=== PATIENT | female | born 1990 | race Caucasian/White ===

== ENCOUNTER 2016-08-19 15:50 | Emergency (ER) | payer OTHER ==
[2016-08-19] MEDS ORDERED: Ketorolac 30 MG/ML SDV IVPUSH ONE (16:10)
[2016-08-19] MEDS ORDERED: Sodium Chloride 0.9% 1,000 ML IV ONE (16:10)
[2016-08-19] MEDS ORDERED: Ondansetron 4 MG/2 ML SDV IVPUSH ONE (16:13)
--- NOTE | 2016-08-19 16:14 | EDM.PDOC ---
ED HPI Trauma - General Chief Complaint: Upper Extremity Injury/Pain Stated Complaint: RIGHT HAND Time Seen by Provider: 08/19/16 16:04 Source: Reports: Patient History Limitations: Reports: No limitations - History of Present Illness INITIAL COMMENTS - FREE TEXT/NARRATIVE: History of present illness: [26 rolled female presenting with acute trauma to right hand. Patient describes a smashing-type injury between 2 metal objects. The fourth digit of her right hand has some avulsion with nail plate disruption.] Review of systems: As per history of present illness and below otherwise all systems reviewed and negative. Past medical history: As per history of present illness and as reviewed below otherwise noncontributory. Surgical history: As per history of present illness and as reviewed below otherwise noncontributory. Social history: No reported history of drug or alcohol abuse. Family history: As per history of present illness and as reviewed below otherwise noncontributory. Physical exam: HEENT: Atraumatic, normocephalic, pupils reactive, negative for conjunctival pallor or scleral icterus, mucous membranes moist, throat clear, neck supple, nontender, trachea midline. Lungs: Clear to auscultation, breath sounds equal bilaterally, chest nontender. Heart: S1S2, regular, negative for clicks, rubs, or JVD. Abdomen: Soft, nondistended, nontender. Negative for masses or hepatosplenomegaly. Negative for costovertebral tenderness. Pelvis: Stable nontender. Genitourinary: Deferred. Rectal: Deferred. Extremities: Right hand with crushing injury, subsequent splitting of integument as well as to disruption of the nail plate, negative for cords or calf pain. Neurovascular unremarkable. Neuro: Awake, alert, oriented. Cranial nerves II through XII unremarkable. Cerebellum unremarkable. Motor and sensory unremarkable throughout. Exam nonfocal. Diagnostics: [X-ray right hand specifically fourth digit] Therapeutics: [IV fluid IV Toradol] Impression: [Open tuft fracture fourth digit of right hand] Plan: [DR Pemberton here for repair , followup with Dr. Pemberton] Definitive disposition and diagnosis as appropriate pending reevaluation and review of above. Allergies/ADRs: Allergies No Known Allergies Allergy (Verified 08/19/16 16:17) Home Medications: Ambulatory Orders . [No Known Home Meds] 08/19/16 [Confirmed 08/19/16] Review of Systems - Review of Systems Review Of Systems: See Below (History of present illness) Trauma Exam - Physical Exam Exam: See Below (The history of present illness) Course - Vital Signs Last Recorded V/S: Last Vital Signs Temp 37.4 C 08/19/16 16:13 Pulse 108 H 08/19/16 16:13 Resp 18 08/19/16 16:13 BP 128/78 08/19/16 16:13 Pulse Ox 95 08/19/16 16:13 - Orders/Labs/Meds Orders: Active Orders 24 hr Category Date Time Status Vaccines to be Administered [RC] PER UNIT ROUTINE Care 08/19/16 16:54 Active Labs: Laboratory Tests 08/19/16 Range/Units 17:35 Urine HCG, Qual NEGATIVE (NEGATIVE) Meds: Medications Discontinued Medications Generic Name Dose Route Start Last Admin Trade Name Freq PRN Reason Stop Dose Admin Diphtheria/Tetanus/Acell Pertussis 0.5 ml 08/19/16 16:54 08/19/16 18:02 Adacel IM 08/19/16 16:55 0.5 ml .ONCE ONE Administration Sodium Chloride 1,000 mls @ 999 mls/hr 08/19/16 16:10 08/19/16 16:43 Normal Saline IV 08/19/16 17:10 999 mls/hr STAT ONE Administration Ketorolac Tromethamine 30 mg 08/19/16 16:10 08/19/16 16:44 Toradol IVPUSH 08/19/16 16:11 30 mg ONETIME ONE Administration Lidocaine HCl 15 ml 08/19/16 16:40 Xylocaine 2% Viscous .ROUTE 08/19/16 16:41 .STK-MED ONE Lidocaine HCl 20 ml 08/19/16 16:52 08/19/16 18:03 Xylocaine 1% INJECT 08/19/16 16:53 20 ml ONETIME ONE Administration Ondansetron HCl 8 mg 08/19/16 16:13 08/19/16 16:45 Zofran IVPUSH 08/19/16 16:14 8 mg ONETIME ONE Administration Departure - Departure Time of Disposition: 18:47 Disposition: Home, Self-Care 01 Condition: good Clinical Impression: Open fracture of tuft of distal phalanx of finger Qualifiers: Encounter type: initial encounter Qualified Code(s): S62.639B - Displaced fracture of distal phalanx of unspecified finger, initial encounter for open fracture Instructions: Finger Fracture, [id number], Pain Medicine Instructions, Easy- to-Read Forms: ED Department Discharge Additional Instructions: The following information is given to patients seen in the emergency department who are being discharged to home. This information is to outline your options for follow-up care. We provide all patients seen in our emergency department with a follow-up referral. The need for follow-up, as well as the timing and circumstances, are variable depending upon the specifics of your emergency department visit. If you don't have a primary care physician on staff, we will provide you with a referral. We always advise you to contact your personal physician following an emergency department visit to inform them of the circumstance of the visit and for follow-up with them and/or the need for any referrals to a consulting specialist. The emergency department will also refer you to a specialist when appropriate. This referral assures that you have the opportunity for follow-up care with a specialist. All of these measure are taken in an effort to provide you with optimal care, which includes your follow-up. Under all circumstances we always encourage you to contact your private physician who remains a resource for coordinating your care. When calling for follow-up care, please make the office aware that this follow-up is from your recent emergency room visit. If for any reason you are refused follow-up, please contact the [facility] Emergency Department at and asked to speak to the emergency department charge nurse. Up with Dr. Pemberton and she discussed Take medication as per her directions Return to ER as needed as discussed - My Orders Last 24 Hours: My Active Orders 08/19/16 16:54 Vaccines to be Administered [RC] PER UNIT ROUTINE - Assessment/Plan Last 24 Hours: My Active Orders 08/19/16 16:54 Vaccines to be Administered [RC] PER UNIT ROUTINE
[2016-08-19] MEDS ORDERED: Lidocaine 2% Viscous Solution 15 ML Cup ONE (16:40)
--- NOTE | 2016-08-19 16:45 | CR ---
EXAMINATION: Right hand, fourth digit HISTORY: Trauma COMPARISON: None TECHNIQUE: 3 views FINDINGS/IMPRESSION: There is mildly displaced and mildly comminuted fracture through the tuft of th e distal fourth phalanx demonstrated. There is an overlying soft tissue defect noted. Remaining osse ous structures and joint spaces appear intact.
[2016-08-19] MEDS ORDERED: Lidocaine 1% 20 ML MDV INJECT ONE (16:52)
[2016-08-19] MEDS ORDERED: Diphtheria,Pertussis(Acell),Tetanus Vaccine 0.5 ML Syringe IM ONE (16:54)
[2016-08-19 19:11] VITALS: BP 115/67
--- NOTE | 2016-08-20 10:01 | PCM.CONS ---
H&P History of Present Illness - General Date of Service: 08/19/16 Admit Problem/Dx: Fingertip open fracture of right ring finger - smash injury. Workforce safety injury. Drove self to ER> Source of Information: Patient, Provider, RN History Limitations: Reports: No limitations - History of Present Illness Initial Comments - Free Text/Narative: smash injury to the right ring finger Onset of Symptoms: Reports: today, sudden Symptom Onset Date: 08/19/16 Duration of Symptoms: Reports: Constant Location: Reports: upper extremity, right Quality: Reports: Ache, Pressure, Throbbing Improves with: Reports: Immobilization Worsens with: Reports: Movement Context: Reports: trauma Associated Symptoms: Reports: no other symptoms right 4th Pain Score (Numeric/FACES): 3 - Related Data Allergies/Adverse Reactions: Allergies Allergy/AdvReac Type Severity Reaction Status Date / Time No Known Allergies Allergy Verified 08/19/16 16:17 Home Medications: Home Meds . [No Known Home Meds] 08/19/16 [History] Past Medical History - Past Health History Medical/Surgical History: Denies Medical/Surgical History Social & Family History - Family History Family Medical History: Noncontributory - Tobacco Use Smoking Status *Q: Never Smoker - Recreational Drug Use Recreational Drug Use: No H&P Review of Systems - Review of Systems: Review Of Systems: See Below General: Reports: no symptoms HEENT: Reports: no symptoms Pulmonary: Reports: No Symptoms Musculoskeletal: Reports: hand pain Skin: Reports: wound Immunologic: Reports: no symptoms Exam - Exam Exam: See Below - Vital Signs Vital Signs: Last Vital Signs Temp 99.9 F 08/19/16 19:07 Pulse 96 08/19/16 19:07 Resp 15 08/19/16 19:07 BP 115/67 08/19/16 19:07 Pulse Ox 100 08/19/16 19:07 Weight: 155 lb - Exam General: alert, oriented, cooperative HEENT: EOMI Lungs: Normal respiratory effort Extremities: normal inspection, other (right ring finger open distal phalanx fracture and nailbed laceration) Skin: warm, dry, wound (right ring finger as above) Neuro Extensive - Mental Status: alert, oriented x3, normal mood/affect - Patient Data Lab Results last 24 hrs: Laboratory Results - last 24 hr 08/19/16 Range/Units 17:35 Urine HCG, Qual NEGATIVE (NEGATIVE) Imaging Impressions last 24 hrs: open distal phalanx fracture right ring finger - tuft fracture Consult PN Assessment/Plan Procedures: repair of right ring finger nailbed laceration (1) Open fracture of tuft of distal phalanx of finger SNOMED Code(s): 873827928 Code(s): S62.639B - DISP FX OF DISTAL PHALANX OF UNSP FINGER, INIT FOR OPN FX Priority: Medium Qualifiers: Encounter type: initial encounter Qualified Code(s): S62.639B - Displaced fracture of distal phalanx of unspecified finger, initial encounter for open fracture Problem List Initiated/Reviewed/Updated: Yes Plan: repair here in the ER for nailbed laceration and splinting. Home on keflex and norco. Requesting Provider: mildred kelsey Date Consult Requested: 08/19/16 Reason for Consult: open right ring finger distal phalanx fracture with nailbed lacer Patient History Reviewed: Yes Admission H&P Reviewed: Yes Consult Result/Summary:: 45min with procedure Notified Requestor: Yes Time Spent (in minutes): 45
--- NOTE | 2016-08-20 10:02 | PCM.OPNOTE ---
- General Post-Op/Procedure Note Date of Surgery/Procedure: 08/19/16 Operative Procedure(s): repair of right ring finger nailbed laceration and fracture treatment Pre Op Diagnosis: right ring finger open distal phalanx fracture with disruption of nailbed. Post-Op Diagnosis: Same Anesthesia Technique: Local Primary Surgeon: Shiela Pemberton Complications: None Condition: Fair
--- NOTE | 2016-08-20 16:28 | OR ---
SURGEON: SHAHANA LAKE MD DATE OF PROCEDURE: 08/19/2016 PREOPERATIVE DIAGNOSIS: Right ring finger nail bed laceration and open distal phalanx fracture. POSTOPERATIVE DIAGNOSIS: Right ring finger nail bed laceration and open distal phalanx fracture. PROCEDURE: Open reduction of tuft fracture and repair of right ring finger nail bed. CLINIC LEAD: None. ANESTHESIA: Local. INDICATIONS: Ms. Egan is a 26-year-old female, who smashed her right ring finger. She has nail bed laceration and it is quite complex and an exposed distal phalanx tuft fracture. This was mildly displaced. The risks and benefits of repair were discussed with her and she would like to proceed here in the emergency room. PROCEDURE IN DETAIL: After informed consent was obtained verbally from the patient, the area was anesthetized and time-out was completed to confirm the area. Once adequately anesthetized, the area was copiously irrigated and soaked in a solution and then prepped with Betadine. The area was copiously irrigated again after debridement and the fracture was reapproximated in an open fashion and then the nail bed laceration was repaired after removal of the nail plate using 5-0 chromic stitches in interrupted fashion. Once adequately repaired, the wound was dressed with Xeroform, fluffs, and a bulky gauze dressing. The patient was placed with options for digital splint. She tolerated this well. All counts of needles were correct at the end the case. She was instructed on postop care. FOLLOWUP INSTRUCTIONS: The patient will see us in 2 weeks. Sooner if any problems, questions, or concerns. She was given a prescription for pain control and antibiotics. CATHERINE / MARCOS /[id number]
== END 2016-08-19 19:11 | disposition home or self-care (01) ==
LOC: MW.ED 15:50
DX: S62.634B Displaced fracture of distal phalanx of right ring finger, initial encounter for open fracture (principal); W23.0XXA Caught, crushed, jammed, or pinched between moving objects, initial encounter; Y92.69 Other specified industrial and construction area as the place of occurrence of the external cause; Y99.0 Civilian activity done for income or pay; Z23 Encounter for immunization
CPT/HCPCS: 73140; 81025; 90471; 90715; 99283; J1885; J2405; J7040

== ENCOUNTER 2021-03-13 09:58 | Inpatient (IN) | payer OTHER ==
[2021-03-13] MEDS ORDERED: Sodium Chloride 0.9% 2.5 ML Syringe FLUSH PRN (10:32)
[2021-03-13] MEDS ORDERED: Carboprost Tromethamine 250 MCG/1 ML Amp IM PRN (10:32)
[2021-03-13] MEDS ORDERED: Misoprostol 200 MCG Tab PO PRN (10:32)
[2021-03-13] MEDS ORDERED: Lidocaine 1% 50 ML MDV INJECT PRN (10:32)
[2021-03-13] MEDS ORDERED: Sodium Chloride 0.9% 10 ML SDV IV PRN (10:32)
[2021-03-13] MEDS ORDERED: Methylergonovine 0.2 MG/1 ML Amp IM PRN (10:32)
[2021-03-13] MEDS ORDERED: Butorphanol 1 MG/ML SDV IVPUSH PRN (10:32)
[2021-03-13] MEDS ORDERED: Water For Irrigation,Sterile 1,000 ML Container IRR PRN (10:32)
[2021-03-13] MEDS ORDERED: Tranexamic Acid 1,000 MG in Sodium Chloride 0.9% 100 ML IV PRN (10:32)
[2021-03-13] MEDS ORDERED: Nalbuphine 10 MG/1 ML Vial IVPUSH PRN (10:32)
[2021-03-13] MEDS ORDERED: Sodium Chloride 0.9% 10 ML Syringe FLUSH PRN (10:32)
[2021-03-13] MEDS ORDERED: Oxytocin/0.9 % Sodium Chloride 30 UNIT/500 ML BAG IV SCH (10:45)
[2021-03-13] MEDS: Lactated Ringers 1,000 ML IV SCH ×4 (11:15→17:09)
[2021-03-13] MEDS ORDERED: Ropivacaine HCl/PF 200 ML ONE (15:07)
--- NOTE | 2021-03-13 15:33 | PCM.PREANE ---
Preanesthetic Assessment - Anesthesia/Transfusion/Family Hx Anesthesia History: Prior Anesthesia Without Reaction Family History of Anesthesia Reaction: No Transfusion History: No Prior Transfusion(s) - Review of Systems General: No Symptoms Pulmonary: No Symptoms Cardiovascular: No Symptoms Gastrointestinal: No Symptoms Neurological: No Symptoms Other: Reports: None - Physical Assessment NPO Status Date: 03/13/21 NPO Status Time: 12:00 Height: 1.78 m Weight: 87.543 kg ASA Class: 2 Mental Status: Alert & Oriented x3 Airway Class: Mallampati = 2 Dentition: Reports: Normal Dentition Thyro-Mental Finger Breadths: 3 Mouth Opening Finger Breadths: 3 ROM/Head Extension: Full Lungs: Clear to Auscultation, Normal Respiratory Effort Cardiovascular: Regular Rate, Regular Rhythm - Lab Values: Laboratory Last Values WBC 14.03 K/uL (4.0-11.0) H 03/13/21 11:15 RBC 3.83 M/uL (4.30-5.90) L 03/13/21 11:15 Hgb 11.6 g/dL (12.0-16.0) L 03/13/21 11:15 Hct 34.6 % (36.0-46.0) L 03/13/21 11:15 MCV 90.3 fL (80.0-98.0) 03/13/21 11:15 MCH 30.3 pg (27.0-32.0) 03/13/21 11:15 MCHC 33.5 g/dL (31.0-37.0) 03/13/21 11:15 RDW Std Deviation 44.8 fl (28.0-62.0) 03/13/21 11:15 RDW Coeff of Mary 14 % (11.0-15.0) 03/13/21 11:15 Plt Count 327 K/uL (150-400) 03/13/21 11:15 MPV 10.10 fL (7.40-12.00) 03/13/21 11:15 Nucleated RBC % 0.0 /100WBC 03/13/21 11:15 Nucleated RBCs # 0 K/uL 03/13/21 11:15 SARS-CoV-2 RNA (JAX) NEGATIVE (NEGATIVE) 03/13/21 10:55 Blood Type A POSITIVE 03/13/21 11:15 Antibody Screen NEGATIVE 03/13/21 11:15 - Allergies Allergies/Adverse Reactions: Allergies Allergy/AdvReac Type Severity Reaction Status Date / Time No Known Allergies Allergy Verified 03/13/21 06:35 - Blood Blood Available: Yes Product(s) Available: PRBC (Type and Screen) - Anesthesia Plan Pre-Op Medication Ordered: None - Acknowledgements Anesthesia Type Planned: Epidural Pt an Appropriate Candidate for the Planned Anesthesia: Yes Alternatives and Risks of Anesthesia Discussed w Pt/Guardian: Yes Pt/Guardian Understands and Agrees with Anesthesia Plan: Yes PreAnesthesia Questionnaire - Past Health History Medical/Surgical History: Denies Medical/Surgical History - SUBSTANCE USE Tobacco Use Status *Q: Never Tobacco User Tobacco Use Within Last Twelve Months: No Second Hand Smoke Exposure: No Recreational Drug Use History: No - HOME MEDS Home Medications: Home Meds . [No Known Home Meds] 08/19/16 [History] - CURRENT (IN HOUSE) MEDS Current Meds: Current Medications Butorphanol Tartrate (Butorphanol 1 Mg/Ml Sdv) 1 mg IVPUSH Q1H PRN PRN Reason: Pain (severe 7-10) Last Admin: 03/13/21 12:12 Dose: 1 mg Documented by: Carboprost Tromethamine (Carboprost Tromethamine 250 Mcg/1 Ml Amp) 250 mcg IM ASDIRECTED PRN PRN Reason: Post Hemorrhage Oxytocin/Sodium Chloride (Oxytocin 30 Unit In Ns 0.9% 500 Ml Premix) 30 unit in 500 mls @ 999 mls/hr IV [facility] Tranexamic Acid 1,000 mg/ (Sodium Chloride) 110 mls @ 660 mls/hr IV ONETIME PRN PRN Reason: Bleeding Lactated Ringer's (Ringers, Lactated) 1,000 mls @ 150 mls/hr IV ASDIRECTED MADY Last Admin: 03/13/21 14:21 Dose: 999 mls/hr Documented by: Lidocaine HCl (Lidocaine 1% 50 Ml Mdv) 50 ml INJECT ONETIME PRN PRN Reason: Laceration repair Methylergonovine Maleate (Methylergonovine 0.2 Mg/1 Ml Amp) 0.2 mg IM ASDIRECTED PRN PRN Reason: Post Hemorrhage Misoprostol (Misoprostol 200 Mcg Tab) 200 mcg PO ONETIME PRN PRN Reason: Post Hemorrhage Nalbuphine HCl (Nalbuphine 10 Mg/1 Ml Vial) 10 mg IVPUSH Q1H PRN PRN Reason: Pain (severe 7-10) Sodium Chloride (Sodium Chloride 0.9% 10 Ml Syringe) 10 ml FLUSH ASDIRECTED PRN PRN Reason: Keep Vein Open Sodium Chloride (Sodium Chloride 0.9% 2.5 Ml Syringe) 2.5 ml FLUSH ASDIRECTED PRN PRN Reason: Keep Vein Open Sodium Chloride (Sodium Chloride 0.9% 10 Ml Sdv) 10 ml IV ASDIRECTED PRN PRN Reason: IV Use Sterile Water (Water For Irrigation,Sterile 1,000 Ml Container) 1,000 ml IRR ASDIRECTED PRN PRN Reason: delivery Discontinued Medications Ropivacaine (Naropin 0.2%) Confirm Administered Dose 200 mls @ as directed .ROUTE .[facility]-MED ONE Stop: 03/13/21 15:08
--- NOTE | 2021-03-13 15:37 | PCM.SN.2 ---
Time Documentation - Pre-Procedure Checklist Attending Provider Aware: Yes Chart Reviewed: Yes Consent Signed: Yes Labs Reviewed: Yes VS/FHR Reviewed: Yes Patient Identification Confirmation Method: Reports: Chart Visual, Verbal Patient Pt an Appropriate Candidate for the Planned Anesthesia: Yes Alternatives and Risks of Anesthesia Discussed w Pt/Guardian: Yes - Procedure Procedure Start Date: 03/13/21 Procedure Start Time: 14:[address]: Reports: Blood Pressure, Heart Rate, SPO2 Functional IV: Yes Safety Measures: Reports: Patient Identified, Procedure Verified, Site Verified, Procedure Time Out Patient Position: Reports: Sitting Prep: Reports: Betadine x3 Local Anesthetic: Reports: Intradermal Wheal w Lidocaine 1% (3 ML) Regional Placement Level: Reports: L3-4 Needle: Reports: 17 g Touhy Approach: Reports: Midline Technique: Reports: BABAK Glass Syringe BABAK Needle Depth (cm): 5 cm Parasthesia: Reports: None Fluid Obtained: Reports: None Catheter Depth at Skin (cm): 14 cm Test Dose Time: 15:03 Test Dose Medication: Reports: Lidocaine 1.5% w Epinephrine 1:200,000 (5 ML) Test Dose Response: Reports: Negative Loading Dose Time: 15:11 Loading Dose Medication: Ropivicaine 0.2% Loading Dose Patient Position: Supine Continuous Infusion Start Time: 15:12 Continuous Infusion Medication: Ropivicaine 0.2% Continuous Infusion Rate: 12 Continuous Infusion PCS Bolus Option: 6 Continuous Infusion Lockout Dose (cc/hr): 15 Patient Position Post Placement: Reports: Supline/MERISSA Post-procedure Pain Level: 3 Level Achieved: T4 VS and FHR Monitored in Unit Post Placement: Yes Procedure End Date: 03/13/21 Procedure End Time: 15:45 Procedure Comment: Sterile technique used throughout
--- NOTE | 2021-03-13 15:37 | PCM.POSTAN ---
POST ANESTHESIA ASSESSMENT - MENTAL STATUS Mental Status: Alert, Oriented - RESPIRATORY Respiratory Status: Respiratory Rate WNL, Airway Patent, O2 Saturation Stable - CARDIOVASCULAR CV Status: Pulse Rate WNL, Blood Pressure Stable - GASTROINTESTINAL GI Status: No Symptoms - POST OP HYDRATION Hydration Status: Adequate & Stable
[2021-03-13] MEDS ORDERED: ePHEDrine 50 MG/ML SDV IVPUSH PRN (15:41)
[2021-03-13] MEDS ORDERED: Ropivacaine 0.2% 2MG/ML 200 ML Bag EPIDUR SCH (15:45)
[2021-03-13] MEDS ORDERED: Ondansetron 4 MG/2 ML SDV ONE (21:26)
[2021-03-13] MEDS ORDERED: Witch Hazel Medicated Pads 40/Jar TOP PRN (23:12)
[2021-03-13] MEDS ORDERED: Bisacodyl 10 MG Supp RECTAL PRN (23:12)
[2021-03-13] MEDS ORDERED: Acetaminophen 500 MG Tab PO PRN ×2 (23:12)
[2021-03-13] MEDS ORDERED: Docusate Sodium 100 MG Cap PO PRN (23:12)
[2021-03-13] MEDS ORDERED: Ibuprofen 800 MG Tab PO PRN (23:12)
[2021-03-13] MEDS ORDERED: Benzocaine/Menthol 20%-0.5% Spray 78 GM Cannister TOP PRN (23:12)
[2021-03-13] MEDS ORDERED: oxyCODONE 5 MG Tab PO PRN (23:12)
[2021-03-13] MEDS ORDERED: Ibuprofen 400 MG Tab PO PRN (23:12)
[2021-03-13] MEDS ORDERED: Lanolin 100% Cream 7 GM Tube TOP PRN (23:12)
--- NOTE | 2021-03-13 23:17 | PCM.OPNOTE ---
- General Post-Op/Procedure Note Date of Surgery/Procedure: 03/13/21 Operative Procedure(s): /2nd MLL repaired Findings: Viable female APGARs 9, 9 weight pending. spontaneous delivery intact placenta with 3V cord Pre Op Diagnosis: 40/2 week IUP. Active labor Post-Op Diagnosis: Same Anesthesia Technique: Epidural Primary Surgeon: Shari Garza EBL in mLs: 300 Complications: none known Condition: Good Free Text/Narrative:: Dictation [id number]
--- NOTE | 2021-03-14 08:10 | OR ---
SURGEON: Shari Garza M.D. DATE OF PROCEDURE: 03/13/2021 PREOPERATIVE DIAGNOSES: 1. 40 and 2 week intrauterine . 2. Active labor. POSTOPERATIVE DIAGNOSES: 1. 40 and 2 week intrauterine . 2. Active labor. PROCEDURES: Spontaneous vaginal delivery, second-degree midline laceration repair. PRIMARY SURGEON: Shari Garza M.D. ANESTHESIA: Epidural. ESTIMATED BLOOD LOSS: 300 mL. COMPLICATIONS: None known. FINDINGS: Viable female. scores 9 at one minute and 9 at five minutes. Weight is pending. Spontaneous delivery, intact placenta, and 3-vessel cord. DISPOSITION: to nursery. Mom in LDRP. PROCEDURE DETAILS: Nichole is a 30-year-old G1, P0, at 40 and 2 weeks' gestation, who presented on 03/13/2021 with regular contractions, found to be in active labor. Upon admission, routine labs were drawn, IV hydration was initiated. She was monitored through the course of the afternoon and followed by Dr. Schroeder. I assumed care approximately at 5:00 p.m. At that time, the patient was comfortable with an epidural. Category 1 heart tones. She was found to be 7 cm. She continued to progress through the evening hours, and shortly after 8:00 p.m. was found to be complete, 100% effaced, +1 station. She began pushing efforts, pushed readily. Shortly after 9:00 p.m., I was called in for delivery. The patient continued with pushing efforts. She was still basically +2 at that interval. She continued to push readily to a +3 station. I placed the patient in a modified dorsal lithotomy position, prepped and draped in the usual aseptic manner. Continued with pushing efforts, was able to deliver the 's head atraumatically spontaneously, followed by anterior shoulder, posterior shoulder, and remainder of the body without difficulty. The infant's oropharynx and nares were bulb suctioned. The infant was handed off to her mother attending nursery staff at her side. After a delay, the cord was clamped x2 and cut. Cord arterial, cord venous, cord blood sampling was obtained. Light pressure was applied. The placenta was delivered spontaneously intact. Vigorous fundal and uterine massage was then applied while 30 units Pitocin was delivered in 500 mL of fluid. Upon inspection of the cervix, vaginal sidewalls, and perineum, there was found to be a second-degree midline laceration. It was repaired using 3-0 Vicryl in the usual fashion as well as a right hymenal first-degree laceration which was repaired with [id number] suture. Hemostasis appeared evident. Sponge, instrument, and needle count was correct. The patient remained in LDRP. to nursery. MIRTHA / MARCOS /[id number]
--- NOTE | 2021-03-14 08:57 | PCM.PNPP ---
- General Info Date of Service: 03/14/21 Functional Status: Reports: Pain Controlled, Tolerating Diet, Ambulating, Urinating - Review of Systems General: Reports: No Symptoms HEENT: Reports: No Symptoms Pulmonary: Reports: No Symptoms Cardiovascular: Reports: No Symptoms Gastrointestinal: Reports: No Symptoms Genitourinary: Reports: No Symptoms Musculoskeletal: Reports: No Symptoms Skin: Reports: No Symptoms Neurological: Reports: No Symptoms Psychiatric: Reports: No Symptoms - General Info Date of Service: 03/14/21 - Patient Data Vital Signs - Most Recent: Last Vital Signs Temp 36.3 C 03/14/21 08:00 Pulse 64 03/14/21 08:00 Resp 16 03/14/21 08:00 BP 103/63 03/14/21 08:00 Pulse Ox 96 03/14/21 08:00 Weight - Most Recent: 87.543 kg I&O - Last 24 Hours: Intake & Output 03/13/21 03/14/21 03/14/21 22:59 06:59 14:59 Intake Total 4500 Output Total 650 700 Balance -650 3800 Lab Results - Last 24 Hours: Laboratory Results - last 24 hr 03/13/21 03/13/21 03/13/21 Range/Units 10:55 11:15 11:15 WBC 14.03 H (4.0-11.0) K/uL RBC 3.83 L (4.30-5.90) M/uL Hgb 11.6 L (12.0-16.0) g/dL Hct 34.6 L (36.0-46.0) % MCV 90.3 (80.0-98.0) fL MCH 30.3 (27.0-32.0) pg MCHC 33.5 (31.0-37.0) g/dL RDW Std Deviation 44.8 (28.0-62.0) fl RDW Coeff of Mary 14 (11.0-15.0) % Plt Count 327 (150-400) K/uL MPV 10.10 (7.40-12.00) fL Nucleated RBC % 0.0 /100WBC Nucleated RBCs # 0 K/uL Cord ABG pH (7.18-7.38) Cord ABG Base Excess (-10--2) Cord VBG pH (7.25-7.45) Cord VBG Base Excess (-10--2) SARS-CoV-2 RNA ([place]) NEGATIVE (NEGATIVE) Blood Type A POSITIVE Antibody Screen NEGATIVE 03/13/21 03/14/21 Range/Units 22:44 05:10 WBC (4.0-11.0) K/uL RBC (4.30-5.90) M/uL Hgb 9.9 L (12.0-16.0) g/dL Hct 30.2 L (36.0-46.0) % MCV (80.0-98.0) fL MCH (27.0-32.0) pg MCHC (31.0-37.0) g/dL RDW Std Deviation (28.0-62.0) fl RDW Coeff of Mary (11.0-15.0) % Plt Count (150-400) K/uL MPV (7.40-12.00) fL Nucleated RBC % /100WBC Nucleated RBCs # K/uL Cord ABG pH 7.314 (7.18-7.38) Cord ABG Base Excess -4 (-10--2) Cord VBG pH 7.311 (7.25-7.45) Cord VBG Base Excess -4 (-10--2) SARS-CoV-2 RNA ([place]) (NEGATIVE) Blood Type Antibody Screen Med Orders - Current: Current Medications Acetaminophen (Acetaminophen 500 Mg Tab) 500 mg PO Q4H PRN PRN Reason: Pain (mild 1-3) Acetaminophen (Acetaminophen 500 Mg Tab) 1,000 mg PO Q4H PRN PRN Reason: Pain (mild 1-3) Last Admin: 03/14/21 00:52 Dose: 1,000 mg Documented by: Benzocaine/Menthol (Benzocaine/Menthol 20%-0.5% [place] 78 Gm Cannister) 78 gm TOP ASDIRECTED PRN PRN Reason: Perineal Comfort Measure Last Admin: 03/14/21 00:51 Dose: 1 pad Documented by: Bisacodyl (Bisacodyl 10 Mg Supp) 10 mg RECTAL ONETIME PRN PRN Reason: Constipation Carboprost Tromethamine (Carboprost Tromethamine 250 Mcg/1 Ml Amp) 250 mcg IM ASDIRECTED PRN PRN Reason: Post Hemorrhage Docusate Sodium (Docusate Sodium 100 Mg Cap) 100 mg PO Q12H PRN PRN Reason: Constipation Emollient Ointment (Lanolin 100% Cream 7 Gm Tube) 0 gm TOP ASDIRECTED PRN PRN Reason: Sore Nipples Ephedrine Sulfate (Ephedrine 50 Mg/Ml Sdv) 10 mg IVPUSH Q1M PRN PRN Reason: Hypotension Oxytocin/Sodium Chloride (Oxytocin 30 Unit In Ns 0.9% 500 Ml Premix) 30 unit in 500 mls @ 999 mls/hr IV TITRATE [facility] Last Infusion: 03/13/21 22:45 Dose: 500 mls/hr Documented by: Tranexamic Acid 1,000 mg/ (Sodium Chloride) 110 mls @ 660 mls/hr IV ONETIME PRN PRN Reason: Bleeding Lactated Ringer's (Ringers, Lactated) 1,000 mls @ 150 mls/hr IV ASDIRECTED [facility] Last Admin: 03/13/21 17:09 Dose: 350 mls/hr Documented by: Ibuprofen (Ibuprofen 400 Mg Tab) 400 mg PO Q4H PRN PRN Reason: Pain (mild 1-3) Ibuprofen (Ibuprofen 800 Mg Tab) 800 mg PO Q6H PRN PRN Reason: Cramping Last Admin: 03/14/21 00:53 Dose: 800 mg Documented by: Methylergonovine Maleate (Methylergonovine 0.2 Mg/1 Ml Amp) 0.2 mg IM ASDIRECTED PRN PRN Reason: Post Hemorrhage Miscellaneous Medication (Phenylephrine Hcl In 0.9% Nacl 1 Mg/10 Ml Syringe) 0.1 mg IVPUSH Q1M PRN PRN Reason: Hypotension Oxycodone HCl (Oxycodone 5 Mg Tab) 5 mg PO Q2H PRN PRN Reason: Pain (severe 7-10) Ropivacaine (Ropivacaine 0.2% 2mg/Ml 200 Ml Bag) 400 mg EPIDUR ASDIRECTED [facility] Sodium Chloride (Sodium Chloride 0.9% 10 Ml Syringe) 10 ml FLUSH ASDIRECTED PRN PRN Reason: Keep Vein Open Sodium Chloride (Sodium Chloride 0.9% 2.5 Ml Syringe) 2.5 ml FLUSH ASDIRECTED PRN PRN Reason: Keep Vein Open Sodium Chloride (Sodium Chloride 0.9% 10 Ml Sdv) 10 ml IV ASDIRECTED PRN PRN Reason: IV Use Sterile Water (Water For Irrigation,Sterile 1,000 Ml Container) 1,000 ml IRR ASDIRECTED PRN PRN Reason: delivery Witch Rose (Witch Rose Medicated Pads 40/Jar) 1 pad TOP ASDIRECTED PRN PRN Reason: comfort care Last Admin: 03/14/21 00:52 Dose: 1 pad Documented by: Discontinued Medications Butorphanol Tartrate (Butorphanol 1 Mg/Ml Sdv) 1 mg IVPUSH Q1H PRN PRN Reason: Pain (severe 7-10) Last Admin: 03/13/21 12:12 Dose: 1 mg Documented by: Ropivacaine (Naropin 0.2%) Confirm Administered Dose 200 mls @ as directed .ROUTE .STK-[employer] ONE Stop: 03/13/21 15:08 Lidocaine HCl (Lidocaine 1% 50 Ml Mdv) 50 ml INJECT ONETIME PRN PRN Reason: Laceration repair Misoprostol (Misoprostol 200 Mcg Tab) 200 mcg PO ONETIME PRN PRN Reason: Post Hemorrhage Nalbuphine HCl (Nalbuphine 10 Mg/1 Ml Vial) 10 mg IVPUSH Q1H PRN PRN Reason: Pain (severe 7-10) Ondansetron HCl (Ondansetron 4 Mg/2 Ml Sdv) Confirm Administered Dose 4 mg .ROUTE .STOmnisens-MED ONE Stop: 03/13/21 21:27 Last Admin: 03/13/21 21:33 Dose: 4 mg Documented by: - Infant Interaction Infant Disposition, : [place] in Room with Family Infant Interaction: Holding Infant Infant Feeding: Breastfed Infant; Nursed Well Support Person: - Recovery Exam Fundal Tone: Firm Fundal Level: At Umbilicus Fundal Placement: Midline Lochia Amount: Small Lochia Color: Rubra/Red Perineum Description: Intact, Minimal Bruising/Swelling, Edematous Episiotomy/Laceration: Approximated Bladder Status: Voiding - Exam General: Alert, Oriented Neck: Supple Lungs: Normal Respiratory Effort GI/Abdominal Exam: Soft, Non-Tender, No Distention Extremities: Non-Tender, No Pedal Edema Skin: Warm, Dry, Intact Neurological: No New Focal Deficit Psy/Mental Status: Alert, Normal Affect, Normal Mood - Problem List & Annotations (1) Vaginal delivery SNOMED Code(s): 574146242 Code(s): O80 - ENCOUNTER FOR FULL-TERM UNCOMPLICATED DELIVERY Status: Acute Current Visit: Yes - Problem List Review Problem List Initiated/Reviewed/Updated: Yes - My Orders Last 24 Hours: My Active Orders 03/13/21 10:32 Carboprost Tromethamine [Hemabate DS] 250 mcg IM ASDIRECTED PRN Methylergonovine [Methergine] 0.2 mg IM ASDIRECTED PRN Sodium Chloride 0.9% [Normal Saline] 10 ml IV ASDIRECTED PRN Sodium Chloride 0.9% [Saline Flush] 10 ml FLUSH ASDIRECTED PRN Sodium Chloride 0.9% [Saline Flush] 2.5 ml FLUSH ASDIRECTED PRN Tranexamic Acid [Cyklokapron] 1,000 mg Sodium Chloride 0.9% [Normal Saline] 100 ml IV ONETIME Water For Irrigation,Sterile [Sterile Water for Irrigation] 1,000 ml IRR ASDIRECTED PRN Resuscitation Status Routine 03/13/21 10:33 Patient Status [ADT] Routine May Shower [RC] ASDIRECTED Up ad [place] [RC] ASDIRECTED Peripheral IV Insertion Adult [OM.PC] Routine 03/13/21 10:45 Lactated Ringers [Ringers, Lactated] 1,000 ml IV ASDIRECTED Oxytocin/0.9 % Sodium Chloride [Oxytocin 30 Unit in NS 0.9% 500 ML Premix] 30 unit in 500 ml IV TITRATE 03/13/21 11:15 RPR (SYPHILIS SERO) W/ RFLX [REF] Routine 03/13/21 16:14 Renew/Continue Urinary Catheter [OM.PC] Routine - Assessment Assessment:: PPD#1 after . Stable minimal lochia. Working on . - Plan Plan:: Continue care. Considering home this evening if peds agrees.
[2021-03-15 09:30] VITALS: BP 127/83; PULSE 79
--- NOTE | 2021-03-15 09:45 | PCM.PNPP ---
- General Info Date of Service: 03/15/21 Functional Status: Reports: Pain Controlled, Tolerating Diet, Ambulating, Urinating - Review of Systems General: Reports: No Symptoms HEENT: Reports: No Symptoms Pulmonary: Reports: No Symptoms Cardiovascular: Reports: No Symptoms Gastrointestinal: Reports: No Symptoms Genitourinary: Reports: No Symptoms Musculoskeletal: Reports: No Symptoms Skin: Reports: No Symptoms Neurological: Reports: No Symptoms Psychiatric: Reports: No Symptoms - General Info Date of Service: 03/15/21 - Patient Data Vital Signs - Most Recent: Last Vital Signs Temp 36.8 C 03/15/21 09:00 Pulse 79 03/15/21 09:00 Resp 16 03/15/21 09:00 BP 127/83 03/15/21 09:00 Pulse Ox 95 03/15/21 09:00 Weight - Most Recent: 87.543 kg Lab Results - Last 24 Hours: Laboratory Results - last 24 hr 03/13/21 Range/Units 11:15 RPR Non-Reac (Non-Reac) Med Orders - Current: Current Medications Acetaminophen (Acetaminophen 500 Mg Tab) 500 mg PO Q4H PRN PRN Reason: Pain (mild 1-3) Acetaminophen (Acetaminophen 500 Mg Tab) 1,000 mg PO Q4H PRN PRN Reason: Pain (mild 1-3) Last Admin: 03/14/21 00:52 Dose: 1,000 mg Documented by: Benzocaine/Menthol (Benzocaine/Menthol 20%-0.5% [place] 78 Gm Cannister) 78 gm TOP ASDIRECTED PRN PRN Reason: Perineal Comfort Measure Last Admin: 03/14/21 00:51 Dose: 1 pad Documented by: Bisacodyl (Bisacodyl 10 Mg Supp) 10 mg RECTAL ONETIME PRN PRN Reason: Constipation Carboprost Tromethamine (Carboprost Tromethamine 250 Mcg/1 Ml Amp) 250 mcg IM ASDIRECTED PRN PRN Reason: Post Hemorrhage Docusate Sodium (Docusate Sodium 100 Mg Cap) 100 mg PO Q12H PRN PRN Reason: Constipation Emollient Ointment (Lanolin 100% Cream 7 Gm Tube) 0 gm TOP ASDIRECTED PRN PRN Reason: Sore Nipples Last Admin: 03/14/21 20:29 Dose: 7 gm Documented by: Ephedrine Sulfate (Ephedrine 50 Mg/Ml Sdv) 10 mg IVPUSH Q1M PRN PRN Reason: Hypotension Oxytocin/Sodium Chloride (Oxytocin 30 Unit In Ns 0.9% 500 Ml Premix) 30 unit in 500 mls @ 999 mls/hr IV TITRATE [facility] Last Infusion: 03/13/21 22:45 Dose: 500 mls/hr Documented by: Tranexamic Acid 1,000 mg/ (Sodium Chloride) 110 mls @ 660 mls/hr IV ONETIME PRN PRN Reason: Bleeding Lactated Ringer's (Ringers, Lactated) 1,000 mls @ 150 mls/hr IV ASDIRECTED [facility] Last Admin: 03/13/21 17:09 Dose: 350 mls/hr Documented by: Ibuprofen (Ibuprofen 400 Mg Tab) 400 mg PO Q4H PRN PRN Reason: Pain (mild 1-3) Ibuprofen (Ibuprofen 800 Mg Tab) 800 mg PO Q6H PRN PRN Reason: Cramping Last Admin: 03/14/21 00:53 Dose: 800 mg Documented by: Methylergonovine Maleate (Methylergonovine 0.2 Mg/1 Ml Amp) 0.2 mg IM ASDIRECTED PRN PRN Reason: Post Hemorrhage Miscellaneous Medication (Phenylephrine Hcl In 0.9% Nacl 1 Mg/10 Ml Syringe) 0.1 mg IVPUSH Q1M PRN PRN Reason: Hypotension Oxycodone HCl (Oxycodone 5 Mg Tab) 5 mg PO Q2H PRN PRN Reason: Pain (severe 7-10) Ropivacaine (Ropivacaine 0.2% 2mg/Ml 200 Ml Bag) 400 mg EPIDUR ASDIRECTED [facility] Sodium Chloride (Sodium Chloride 0.9% 10 Ml Syringe) 10 ml FLUSH ASDIRECTED PRN PRN Reason: Keep Vein Open Sodium Chloride (Sodium Chloride 0.9% 2.5 Ml Syringe) 2.5 ml FLUSH ASDIRECTED PRN PRN Reason: Keep Vein Open Sodium Chloride (Sodium Chloride 0.9% 10 Ml Sdv) 10 ml IV ASDIRECTED PRN PRN Reason: IV Use Sterile Water (Water For Irrigation,Sterile 1,000 Ml Container) 1,000 ml IRR ASDIRECTED PRN PRN Reason: delivery Witch Rose (Witch Rose Medicated Pads 40/Jar) 1 pad TOP ASDIRECTED PRN PRN Reason: comfort care Last Admin: 03/14/21 00:52 Dose: 1 pad Documented by: Discontinued Medications Butorphanol Tartrate (Butorphanol 1 Mg/Ml Sdv) 1 mg IVPUSH Q1H PRN PRN Reason: Pain (severe 7-10) Last Admin: 03/13/21 12:12 Dose: 1 mg Documented by: Ropivacaine (Naropin 0.2%) Confirm Administered Dose 200 mls @ as directed .ROUTE .STK-MED ONE Stop: 03/13/21 15:08 Last Admin: 03/14/21 18:15 Dose: Not Given Documented by: Lidocaine HCl (Lidocaine 1% 50 Ml Mdv) 50 ml INJECT ONETIME PRN PRN Reason: Laceration repair Misoprostol (Misoprostol 200 Mcg Tab) 200 mcg PO ONETIME PRN PRN Reason: Post Hemorrhage Nalbuphine HCl (Nalbuphine 10 Mg/1 Ml Vial) 10 mg IVPUSH Q1H PRN PRN Reason: Pain (severe 7-10) Ondansetron HCl (Ondansetron 4 Mg/2 Ml Sdv) Confirm Administered Dose 4 mg . ROUTE .STK-MED ONE Stop: 03/13/21 21:27 Last Admin: 03/13/21 21:33 Dose: 4 mg Documented by: - Infant Interaction Infant Disposition, : [place] in Room with Family Infant Interaction: Holding Infant Feeding: Breastfed Infant; Nursed Well Support Person: - Recovery Exam Fundal Tone: Firm Fundal Level: 2 Fingerbreadths Below Umbilicus Fundal Placement: Right Lochia Amount: Scant Lochia Color: Rubra/Red Perineum Description: Redness, Other (see below) Other Perinuem Description: 2 degree laceration Episiotomy/Laceration: Approximated Bladder Status: Voiding - Exam General: Alert, Oriented Lungs: Normal Respiratory Effort GI/Abdominal Exam: Soft, Non-Tender Extremities: Non-Tender, No Pedal Edema Skin: Warm, Dry, Intact Psy/Mental Status: Alert, Normal Affect, Normal Mood - Problem List & Annotations (1) Vaginal delivery SNOMED Code(s): 633385533 Code(s): O80 - ENCOUNTER FOR FULL-TERM UNCOMPLICATED DELIVERY Status: Acute Current Visit: Yes - Problem List Review Problem List Initiated/Reviewed/Updated: Yes - Assessment Assessment:: PPD#2 after . Stable minimal lochia. is getting better. Would like to go home today, baby under Bili lights will recheck bili at noon - Plan Plan:: Continue care. Discharge instructions reviewed.
--- NOTE | 2021-03-15 12:58 | PCM48HPAN ---
Post Anesthesia Note - EVALUATION WITHIN 48HRS OF ANESTHETIC Vital Signs in Normal Range: Yes Patient Participated in Evaluation: Yes Respiratory Function Stable: Yes Airway Patent: Yes Cardiovascular Function Stable: Yes Hydration Status Stable: Yes Pain Control Satisfactory: Yes Nausea and Vomiting Control Satisfactory: Yes Mental Status Recovered: Yes Vital Signs: Last Vital Signs Temp 36.8 C 03/15/21 09:00 Pulse 79 03/15/21 09:00 Resp 16 03/15/21 09:00 BP 127/83 03/15/21 09:00 Pulse Ox 95 03/15/21 09:00 - COMMENTS/OBSERVATIONS Free Text/Narrative:: Pt states to being satisfied with epidural. st states to being up and walking with no weakness or residual numbness. Pt denies signs and symptoms of infection.
== END 2021-03-15 15:35 | disposition home or self-care (01) | DRG 807 ==
LOC: MW.OBCHECK 09:58 → MW.OB 10:38 → OBSVTOIN 22:43 → MW.OB 03-14 04:07
PROVIDERS: ADMIT Obstetrics & Gynecology; ATTEND Obstetrics & Gynecology
PROC: 10E0XZZ Delivery of Products of Conception, External Approach (ICD-10-PCS; principal; 2021-03-13)
PROC: 10907ZC Drainage of Amniotic Fluid, Therapeutic from Products of Conception, Via Natural or Artificial Opening (ICD-10-PCS; 2021-03-13)
PROC: 3E0R3BZ Introduction of Anesthetic Agent into Spinal Canal, Percutaneous Approach (ICD-10-PCS; 2021-03-13)
DX: O48.0 Post-term pregnancy (principal); Z37.0 Single live birth; O70.1 Second degree perineal laceration during delivery; Z20.822 Contact with and (suspected) exposure to COVID-19; Z3A.40 40 weeks gestation of pregnancy
CPT/HCPCS: 36415; 51702; 59025; 59409; 82803; 85014; 85018; 85027; 86592; 86850; 86900; 86901; A9270-GY; J0595; J2405; J2590; J2795; J7120; U0002

== ENCOUNTER 2022-01-29 18:39 | Emergency (ER) | payer OTHER ==
[2022-01-29 21:11] VITALS: BP 113/83; PULSE 63
== END 2022-01-29 21:11 | disposition home or self-care (01) ==
LOC: MW.ED 18:39
DX: R20.2 Paresthesia of skin (principal)
CPT/HCPCS: 70450; 70450-26; 81025; 99284

== ENCOUNTER 2022-08-17 17:45 | Emergency (ER) | payer OTHER ==
[2022-08-17 19:57] LABS: CARBON DIOXIDE,CO2 27.5 mmol/L (21.0-32.0); POTASSIUM,K 3.9 mmol/L (3.5-5.1)
[2022-08-17 20:55] VITALS: BP 122/72; PULSE 67
== END 2022-08-17 20:54 | disposition home or self-care (01) ==
LOC: MW.ED 17:45
DX: R07.89 Other chest pain (principal)
CPT/HCPCS: 36415; 71045; 71045-26; 80053; 84484; 85025; 93005; 93010; 99283; 99285

== ENCOUNTER 2024-08-25 19:57 | Inpatient (IN) | payer OTHER ==
[2024-08-25] MEDS ORDERED: Misoprostol 200 MCG Tab PO PRN (20:45)
[2024-08-25] MEDS ORDERED: Butorphanol 1 MG/ML SDV IVPUSH PRN (20:45)
[2024-08-25] MEDS ORDERED: Water For Irrigation,Sterile 1,000 ML Container IRR PRN (20:45)
[2024-08-25] MEDS ORDERED: Lidocaine 1% 50 ML MDV INJECT PRN (20:45)
[2024-08-25] MEDS ORDERED: Misoprostol 200 MCG Tab RECTAL PRN (20:45)
[2024-08-25] MEDS ORDERED: Terbutaline 1 MG/ML SDV SUBCUT PRN (20:45)
[2024-08-25] MEDS ORDERED: Oxytocin/0.9 % Sodium Chloride 30 UNIT/500 ML BAG IV SCH (20:45)
[2024-08-25] MEDS ORDERED: Carboprost Tromethamine 250 MCG/1 mL Vial IM PRN (20:45)
[2024-08-25] MEDS ORDERED: Misoprostol 25 MCG (1/4 of 100 MCG) Tab VAG PRN ×2 (20:45)
[2024-08-25] MEDS ORDERED: Sodium Chloride 0.9% 2.5 ML Syringe FLUSH PRN (20:45)
[2024-08-25] MEDS ORDERED: Sodium Chloride 0.9% 20 ML SDV IV PRN (20:45)
[2024-08-25] MEDS ORDERED: Sodium Chloride 0.9% 10 ML Syringe FLUSH PRN (20:45)
[2024-08-25] MEDS ORDERED: Methylergonovine 0.2 MG/1 ML Amp IM PRN (20:45)
[2024-08-25 22:01] LABS: HEMATOCRIT 33.4 % (37.0-47.0); HEMOGLOBIN 11.2 g/dL (12.0-16.0); MEAN CORPUSCULAR HEMOGLOBIN 29.5 pg (28.0-32.0); MEAN CORPUSCULAR HGB CONC 33.5 g/dL (32.0-36.0); MEAN CORPUSCULAR VOLUME 87.9 fL (83.0-99.0); MEAN PLATELET VOLUME 9.6 fL (9.4-12.3); PLATELET COUNT,PLT 299 K/uL (150-400)
[2024-08-26] MEDS: Oxytocin/0.9 % Sodium Chloride 30 UNIT/500 ML BAG IV SCH (00:08)
[2024-08-26] MEDS: Lactated Ringers 1,000 ML IV SCH (00:08)
[2024-08-26] MEDS ORDERED: Ropivacaine HCl/PF 200 ML ONE (05:16)
[2024-08-26] MEDS ORDERED: dexmedeTOMIDine HCl 200 MCG/2 ML SDV ONE (05:16)
[2024-08-26] MEDS ORDERED: Phenylephrine HCl In 0.9% NaCl 1 MG/10 ML Syringe ONE (05:16)
[2024-08-26] MEDS ORDERED: ePHEDrine 50 MG/ML SDV IVPUSH PRN (06:03)
[2024-08-26] MEDS ORDERED: Phenylephrine HCl In 0.9% NaCl 1 MG/10 ML Syringe IVPUSH PRN (06:03)
[2024-08-26] MEDS: Ondansetron 4 MG/2 ML SDV IVPUSH PRN (06:15)
[2024-08-26] MEDS ORDERED: dexmedeTOMIDine HCl 200 MCG/2 ML SDV EPIDUR SCH (06:15)
[2024-08-26] MEDS ORDERED: oxyCODONE 5 MG Tab PO PRN (07:03)
[2024-08-26] MEDS: Ropivacaine HCl/PF 400 MG in Premix Bag 1 BAG EPIDUR SCH (07:49)
[2024-08-26 08:20] LABS: PH,UMBILICAL ARTERIAL 7.248 (7.18-7.38); PH,UMBILICAL VENOUS 7.266 (7.25-7.45)
[2024-08-26] MEDS: Witch Hazel Medicated Pads 40/Jar TOP PRN (09:02)
[2024-08-26] MEDS: Benzocaine/Menthol 20%-0.5% Spray 78 GM Cannister TOP PRN (09:03)
[2024-08-26] MEDS: Lanolin 100% Cream 7 GM Tube TOP PRN (09:03)
[2024-08-26] MEDS: Ibuprofen 800 MG Tab PO PRN (13:07)
[2024-08-26] MEDS: Docusate Sodium 100 MG Cap PO PRN (22:25)
[2024-08-27 04:50] LABS: HEMATOCRIT 32.7 % (37.0-47.0); HEMOGLOBIN 10.6 g/dL (12.0-16.0)
[2024-08-27] MEDS: Acetaminophen 500 MG Tab PO PRN (06:40)
[2024-08-27 11:46] VITALS: BP 112/70; PULSE 64
== END 2024-08-27 12:10 | disposition home or self-care (01) | DRG 807 ==
LOC: MW.OBCHECK 19:57 → MW.OB 19:57 → MW.OBCHECK 20:46 → MW.OB 20:46 → OBSVTOIN 08-26 06:36 → MW.OB 08-26 09:33
PROVIDERS: ADMIT Obstetrics & Gynecology; ATTEND Obstetrics & Gynecology
PROC: 10E0XZZ Delivery of Products of Conception, External Approach (ICD-10-PCS; principal; 2024-08-26)
PROC: 0HQ9XZZ Repair Perineum Skin, External Approach (ICD-10-PCS; 2024-08-26)
PROC: 3E0R3BZ Introduction of Anesthetic Agent into Spinal Canal, Percutaneous Approach (ICD-10-PCS; 2024-08-26)
PROC: 00HU33Z Insertion of Infusion Device into Spinal Canal, Percutaneous Approach (ICD-10-PCS; 2024-08-26)
DX: O42.02 Full-term premature rupture of membranes, onset of labor within 24 hours of rupture (principal); Z37.0 Single live birth; O70.0 First degree perineal laceration during delivery; O48.0 Post-term pregnancy; Z3A.41 41 weeks gestation of pregnancy
CPT/HCPCS: 36415; 51702; 59025; 82803; 84112; 85014; 85018; 85027; 86592; 86850; 86900; 86901; A9270-GY; J2371; J2405; J2590; J2795; J7120